=== PATIENT | male | born 1950 | race Caucasian/White ===

== ENCOUNTER 2016-07-22 08:41 | Day surgery (SDC) | payer OTHER ==
[~2016-07-22] VITALS: Ht 180.3 cm; Wt 87.1 kg
[~2016-07-22 08:41] MED LIST: AMLODIPINE BESY10 MG PO; ATORVASTATIN CA80 MG PO; LO-DOSE ASPIRIN81 M2 PO; LOSARTAN POTAS100 MG PO; METOPROLOL TART25 MG PO; oxycodone
[2016-07-22 09:19] VITALS: BP 155/89
[2016-07-22] MEDS ORDERED: NORCO 5/3251 TABLET PO (11:27)
[2016-07-22 11:58] VITALS: BP 138/84
[2016-07-22 13:01] VITALS: BP 134/89
== END 2016-07-22 13:05 | disposition home or self-care (01) ==
LOC: SDC 08:41
PROC: 0DH63UZ Insertion of Feeding Device into Stomach, Percutaneous Approach (ICD-10-PCS; principal; 2016-07-22)
DX: R13.19 Other dysphagia (principal); C10.9 Malignant neoplasm of oropharynx, unspecified; I10 Essential (primary) hypertension; I25.10 Atherosclerotic heart disease of native coronary artery without angina pectoris; E78.5 Hyperlipidemia, unspecified; Z79.82 Long term (current) use of aspirin; Z82.49 Family history of ischemic heart disease and other diseases of the circulatory system; Z82.0 Family history of epilepsy and other diseases of the nervous system; Z82.5 Family history of asthma and other chronic lower respiratory diseases
CPT/HCPCS: J2405

== ENCOUNTER 2016-08-20 12:16 | Emergency (ER) | payer OTHER ==
[~2016-08-20] VITALS: Ht 180.3 cm; Wt 79.8 kg
[~2016-08-20 12:16] MED LIST changes: +NORCO 5/3251 TABLET PO
[2016-08-20] MEDS ORDERED: BENADRYL50 MG PO (15:47)
[2016-08-20] MEDS ORDERED: PREDNISONE20 MG PO (15:47)
[2016-08-20] MEDS ORDERED: ZANTAC150 MG PO (15:47)
[2016-08-20 16:01] VITALS: BP 119/86
== END 2016-08-20 16:02 | disposition home or self-care (01) ==
LOC: EME 12:16
DX: L27.0 Generalized skin eruption due to drugs and medicaments taken internally (principal); L29.9 Pruritus, unspecified; T50.905A Adverse effect of unspecified drugs, medicaments and biological substances, initial encounter; I10 Essential (primary) hypertension; C14.0 Malignant neoplasm of pharynx, unspecified; Z87.891 Personal history of nicotine dependence; Z79.82 Long term (current) use of aspirin
CPT/HCPCS: 99281; 99285; J1200; J2930; S0028